=== PATIENT | male | born 1965 | race Caucasian/White ===

== ENCOUNTER 2019-10-03 00:10 | Emergency (ER) | payer OTHER ==
[~2019-10-03] VITALS: Ht 177.8 cm; Wt 83.9 kg
[~2019-10-03 00:10] MED LIST: CHLO25 PO; FENO145 PO; HYDACE5; LISI5 PO
[2019-10-03] MEDS ORDERED: ERYT1OIN LEFTEYE (04:04)
[2019-10-03] MEDS ORDERED: ACULAR5 ML TOP (04:04)
== END 2019-10-03 05:30 | disposition home or self-care (01) ==
LOC: ER 00:10
DX: T15.82XA Foreign body in other and multiple parts of external eye, left eye, initial encounter (principal); I10 Essential (primary) hypertension; E78.00 Pure hypercholesterolemia, unspecified; F17.200 Nicotine dependence, unspecified, uncomplicated; Z79.899 Other long term (current) drug therapy
CPT/HCPCS: 65205; 70480; 99283-25